=== PATIENT | female | born 1945 | race Hispanic/Latino ===

== ENCOUNTER → 2018-05-02 | Outpatient (CLI) | payer OTHER | END | disposition home or self-care (01) | LOC: OIH 15:37 | PROVIDERS: ATTEND Family Medicine | DX: M47.818 Spondylosis without myelopathy or radiculopathy, sacral and sacrococcygeal region (principal); M85.88 Other specified disorders of bone density and structure, other site; R07.81 Pleurodynia | CPT/HCPCS: 71100; 72220 ==

== ENCOUNTER → 2018-07-07 | Outpatient (CLI) | payer OTHER | END | disposition home or self-care (01) | LOC: RAH 11:49 | PROVIDERS: ATTEND Family Medicine | DX: E04.2 Nontoxic multinodular goiter (principal) | CPT/HCPCS: 76536 ==

== ENCOUNTER → 2019-04-03 | Outpatient (CLI) | payer OTHER | END | disposition home or self-care (01) | LOC: RAH 11:30 | PROVIDERS: ATTEND Family Medicine | DX: E04.2 Nontoxic multinodular goiter (principal) | CPT/HCPCS: 76536 ==

== ENCOUNTER → 2019-11-19 | Outpatient (CLI) | payer OTHER | END | disposition home or self-care (01) | LOC: RAH 11:10 | PROVIDERS: ATTEND Internal Medicine | DX: M47.816 Spondylosis without myelopathy or radiculopathy, lumbar region (principal); G95.89 Other specified diseases of spinal cord; R10.2 Pelvic and perineal pain | CPT/HCPCS: 72192 ==

== ENCOUNTER → 2020-01-13 | Outpatient (CLI) | payer OTHER | END | disposition home or self-care (01) | LOC: OIH 10:45 | PROVIDERS: ATTEND Family Medicine | DX: R51 Headache (principal); Z91.09 Other allergy status, other than to drugs and biological substances | CPT/HCPCS: 70220 ==

== ENCOUNTER → 2020-01-20 | Outpatient (CLI) | payer OTHER | END | disposition home or self-care (01) | LOC: OIH 15:18 | PROVIDERS: ATTEND Family Medicine | DX: M25.551 Pain in right hip (principal) | CPT/HCPCS: 73502 ==

== ENCOUNTER → 2021-07-17 | Outpatient (CLI) | payer OTHER | END | disposition home or self-care (01) | LOC: RAH 10:43 | PROVIDERS: ATTEND Family Medicine | DX: M25.711 Osteophyte, right shoulder (principal); M25.511 Pain in right shoulder | CPT/HCPCS: 73030 ==

== ENCOUNTER → 2022-07-10 | Outpatient (CLI) | payer OTHER | END | disposition home or self-care (01) | LOC: RAH 12:35 | PROVIDERS: ATTEND Family Medicine | DX: M48.02 Spinal stenosis, cervical region (principal); R22.1 Localized swelling, mass and lump, neck | CPT/HCPCS: 72040 ==

== ENCOUNTER → 2023-04-11 | Outpatient (CLI) | payer OTHER | END | disposition home or self-care (01) | LOC: RAH 11:12 | PROVIDERS: ATTEND Family Medicine | DX: R55 Syncope and collapse (principal) | CPT/HCPCS: 70450 ==

== ENCOUNTER → 2023-08-29 | Outpatient (CLI) | payer OTHER | END | disposition home or self-care (01) | LOC: RAH 08:38 | PROVIDERS: ATTEND Family Medicine | DX: N63.11 Unspecified lump in the right breast, upper outer quadrant (principal); N60.01 Solitary cyst of right breast | CPT/HCPCS: 76641; 77066 ==

== ENCOUNTER → 2023-11-28 | Outpatient (CLI) | payer OTHER | END | disposition home or self-care (01) | LOC: SHCH 11:18 | PROVIDERS: ATTEND Internal Medicine Cardiovascular Disease | DX: I25.42 Coronary artery dissection (principal) | CPT/HCPCS: 93306 ==

== ENCOUNTER → 2024-02-13 | Outpatient (CLI) | payer OTHER | END | disposition home or self-care (01) | LOC: RAH 14:51 | PROVIDERS: ATTEND Family Medicine | DX: M17.11 Unilateral primary osteoarthritis, right knee (principal); M25.461 Effusion, right knee; M71.21 Synovial cyst of popliteal space [Baker], right knee | CPT/HCPCS: 73721 ==

== ENCOUNTER → 2024-03-25 | Outpatient (CLI) | payer OTHER ==
[~2024-03-25] MED LIST: DIATR MEGLU/DIATRIZOATE SODIUM 30 ML BOTTLE ONE; IOHEXOL 350 MG/ML 100ML INFUS..BTL IV ONE
--- NOTE | 2024-03-25 12:50 | HMCIMG ---
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 TECHNIQUE: Images are obtained from the lung bases to the symphysis pubis following IV contrast, 100 cc Omnipaque 350. Oral contrast was administered as well. Water-soluble enema contrast was also employed. FINDINGS: Lung bases are clear. There are no focal liver lesions. There are normal-appearing kidneys.. Spleen and pancreas appear unremarkable. The gallbladder appears normal as well. Bowel loops appear unremarkable. This includes normal appearance of the appendix There is no evidence of free fluid or intraperitoneal air. There are no focal fluid collections. Aorta and retroperitoneum appear normal. There is no retroperitoneal lymphadenopathy. Urinary bladder appears unremarkable. Uterus appears atrophic, there are a few small calcifications. There is no evidence of contrast entering the ureter or exiting the vagina. The anterior abdominal wall is intact. Osseous structures appear unremarkable. IMPRESSION: 1. Negative noncontrast CT abdomen and pelvis. 2. No CT evidence of vaginal fistula. CT was performed with one or more following dose reduction techniques: automated exposure control, adjustment of the mA and kv according to patient's size, or use of a iterative reconstruction technique.
== END | disposition home or self-care (01) ==
LOC: RAH 08:49
PROVIDERS: ATTEND Internal Medicine
DX: N85.8 Other specified noninflammatory disorders of uterus (principal); N82.3 Fistula of vagina to large intestine
CPT/HCPCS: 74177; Q9963; Q9967

== ENCOUNTER → 2024-05-29 | Outpatient (CLI) | payer OTHER ==
--- NOTE | 2024-05-30 09:47 | HMCIMG ---
Nuclear medicine gastric emptying study HISTORY: Unspecified Abdominal Pain. COMPARISON: No relevant prior studies. RADIOPHARMACEUTICAL: 1 mCi of technetium 99 sulfur colloid TECHNIQUE: Dynamic computer imaging and serial static images were performed over the anterior abdomen for 1 hour. Static images obtained up to 2 hours. By region of interest computer analysis, a time/activity curve for the stomach was generated and a T 1/2 for clearance of activity was determined. FINDINGS: Review of dynamic images does not demonstrate any gastroesophageal reflux. The normal pattern of gastric emptying is appreciated. T 1/2: 96 minutes (normal 55-90 minutes). Percent empty at 1 hour: 46 percent (less than 40 percent at one hour is consistent with delayed emptying). IMPRESSION: Normal gastric emptying. No evidence of gastric outlet obstruction. No evidence of gastric emptying delay or gastroparesis.
== END | disposition home or self-care (01) ==
LOC: RAH 10:24
PROVIDERS: ATTEND Internal Medicine
DX: R10.9 Unspecified abdominal pain (principal)
CPT/HCPCS: 78264; A9541

== ENCOUNTER → 2024-09-22 | Outpatient (CLI) | payer OTHER ==
--- NOTE | 2024-09-23 09:30 | HMCIMG ---
MAMMO SCREENING BILATERAL HISTORY: Screening mammogram. COMPARISON: 08/29/2023 TECHNIQUE: Bilateral screening mammogram with CAD was performed with craniocaudal and mediolateral oblique projections. FINDINGS: There are scattered areas of fibroglandular density. There is no evidence of a dominant mass, or suspicious microcalcification. There is no evidence of nipple retraction or skin thickening. IMPRESSION: 1. Stable mammogram. Patient was entered into a reminder system with a target due date for their next mammogram. BI-RADS: CATEGORY 2: BENIGN FINDINGS Recommend monthly self breast exam as well as annual clinical examination. A negative x-ray should not delay biopsy if a dominant or clinically suspicious mass is present, since 8-10% of cancers are not identified by mammography. Dense breasts particularly, may obscure an underlying neoplasm. Some of these may be detected clinically and therefore, clinical examination is an essential part of breast evaluation.
== END | disposition home or self-care (01) ==
LOC: RAH 14:01
PROVIDERS: ATTEND Family Medicine
DX: Z12.31 Encounter for screening mammogram for malignant neoplasm of breast (principal); R92.323 Mammographic fibroglandular density, bilateral breasts
CPT/HCPCS: 77067

== ENCOUNTER → 2024-12-08 | Outpatient (CLI) | payer OTHER ==
--- NOTE | 2024-12-08 17:45 | HMCIMG ---
STUDY: MRI LUMBAR SPINE WITHOUT IV CONTRAST TECHNIQUE : Multiplanar T1 and T2 weighted sequences were obtained through the lumbar spine. ] CLINICAL INDICATION: Radiculopathy. FINDINGS: Mild levoscoliosis of the lumbar spine The conus medularis terminates at T12-L1 and is normal in appearance. T10-T11: 2 mm left paramidline posterior disk protrusion contains an annular disk tear. No visible spinal stenosis. Mild left neural foraminal narrowing. T11-T12:: There is mild anterior endplate marginal spurring. There is a 3 mm posterior disk protrusion resulting in mild central canal narrowing. Mild bilateral neural foraminal narrowing. T12-L1. Moderate loss of disc height. Small Schmorl's nodes within the adjacent endplates. Mild to moderate anterior endplate marginal spurring. 3 mm grade 1 posterior listhesis of the T12 over the L1 vertebral body. No disc herniation. There is a 5-6 mm posterior disk protrusion. Mild facet arthrosis and ligamentum flavum hypertrophy. Mild to moderate central canal narrowing. Mild to moderate right and mild left neural foraminal narrowing. L1-L2:. Mild loss of the disc height.. There is a 4 mm left posterolateral disc protrusion. There is mild central canal narrowing and mild left neural foraminal narrowing without evidence for nerve root impingement. Mild facet arthrosis and ligamentum flavum hypertrophy. L2-L3: Moderate to marked loss of disc height. 2 mm grade 1 posterior listhesis of the L2 over the L3 vertebral body.. There is a 6 mm posterior disk protrusion containing an annular disk tear. Moderate ligamentum flavum hypertrophy. Mild facet arthrosis. Moderate to marked central canal narrowing. Crowding of the descending nerve roots. Moderate bilateral neural foraminal narrowing. Contact and mild impingement on the exiting right L2 nerve root. L3-L4:. Marked loss of disc height. There is a 3 mm grade 1 posterior listhesis of L3 over the L4 vertebral body. Mild anterior endplate marginal spurring. There is a 4-5 mm broad-based posterior disc protrusion eccentric to the left. There is mild to moderate right and mild left facet arthrosis.. Moderate to marked central canal narrowing. Mild to moderate bilateral neural foraminal narrowing without evidence for nerve root impingement. [ L4-L5:. Mild loss of the disc height.. There is a 3 mm broad-based posterior disc protrusion. Mild to moderate facet arthrosis.. Moderate ligamentum flavum hypertrophy. Moderate central canal narrowing. Crowding of the descending nerve roots. Moderate left neural foraminal narrowing with contact and mild impingement on the exiting left L4 nerve root. Mild right neural foraminal narrowing L5-S1:. Marked loss of the disc height.. There is a 5 mm posterior disk protrusion. Mild facet arthrosis and ligamentum flavum hypertrophy.. Mild to moderate central canal and neural foraminal narrowing. Contact on the exiting right L5 nerve root without definite nerve root impingement. No bone marrow edema. Preservation of the vertebral body heights. The visualized para-spinal soft tissues are unremarkable. IMPRESSION: 1. Multilevel degenerative changes most severe at L2-L3 with moderate to marked central canal stenosis, posterior disk protrusion, and right L2 nerve root impingement. 2. Moderate to makred central canal stenosis at L4-L5 with left L4 nerve root impingement. 3. Grade 1 posterior listhesis at T12-L1, L2-L3, and L3-L4 levels. 4. Contact on the right L5 nerve root at L5-S1 without definite impingement. 5. Mild levoscoliosis. /[place]
== END | disposition home or self-care (01) ==
LOC: RAH 13:41
PROVIDERS: ATTEND Family Medicine
DX: M51.16 Intervertebral disc disorders with radiculopathy, lumbar region (principal); M47.26 Other spondylosis with radiculopathy, lumbar region; M51.24 Other intervertebral disc displacement, thoracic region; M53.3 Sacrococcygeal disorders, not elsewhere classified; M47.818 Spondylosis without myelopathy or radiculopathy, sacral and sacrococcygeal region; M48.07 Spinal stenosis, lumbosacral region; M48.04 Spinal stenosis, thoracic region; M51.45 Schmorl's nodes, thoracolumbar region; M46.07 Spinal enthesopathy, lumbosacral region; M43.15 Spondylolisthesis, thoracolumbar region; M41.86 Other forms of scoliosis, lumbar region
CPT/HCPCS: 72148

== ENCOUNTER 2024-12-11 17:58 | Emergency (ER) | payer OTHER ==
[~2024-12-11] VITALS: Ht 157.5 cm; Wt 70.3 kg
--- NOTE | 2024-12-11 18:08 | ERN ---
ED Note History of Present Illness Stated Complaint: SPIDER BITE Chief Complaint: Animal Bite Time Seen by MD: 18:00 Dictation: PATIENT IS A 79-YEAR-OLD FEMALE HERE WITH COMPLAINTS OF A SPIDER BITE THAT SHE WITNESSED AT NOON TODAY TO HER ANTERIOR LEFT FOOT ANKLE. SHE STATES IT HURT SHE SAID SHE KILLED IT HOWEVER SHE DID NOT BRING IN FOR EXAMINATION. SHE HAS TAKEN NOTHING PRIOR TO ARRIVAL FOR PAIN SHE IS HERE BECAUSE IT IS IS MILDLY PAINFUL MILD ERYTHEMA TO THE ENVENOMATION SITE. SHE IS A DIABETIC Allergies: Coded Allergies: Iodinated Contrast Media (Unverified Allergy, Unknown, 05/29/24) iodine (Unverified Allergy, Unknown, 05/29/24) Past Medical History Past Medical History: Diabetes-Type II, High Cholesterol, Hypertension Surgical History: Hysterectomy History: Not Applicable RN Note Reviewed/Agreed w/PFSH: Yes Review of System Dictation CONSTITUTIONAL: NEGATIVE EXCEPT FOR HPI HEAD/FACE: NEGATIVE EXCEPT FOR HPI EENT: NEGATIVE EXCEPT FOR HPI RESPIRATORY: NEGATIVE EXCEPT FOR HPI GASTROINTESTINAL/ABDOMINAL: NEGATIVE EXCEPT FOR HPI GENITOURINARY: NEGATIVE EXCEPT FOR HPI MUSCULOSKELETAL: NEGATIVE EXCEPT FOR HPI INTEGUMENTARY: NEGATIVE EXCEPT FOR HPI SPIDER BITE LEFT ANTERIOR FOOT ANKLE. NEUROLOGICAL/PSYCH: NEGATIVE EXCEPT FOR HPI HEMATOLOGIC/LYMPHATIC: NEGATIVE EXCEPT FOR HPI ALL SYSTEMS NEGATIVE, EXCEPT NOTED ABOVE. 13 POINT REVIEW OF SYSTEMS ASSESSED AND ALL NEGATIVE EXCEPT FOR ABOVE. Initial Vital Sign VS Vital Signs Date Time Temp Pulse Resp B/P (MAP) Pulse Ox O2 Delivery O2 Flow Rate FiO2 12/11/24 18:00 97.7 61 19 172/58 100 Room Air 0 12/11/24 18:27 21 Physical Exam Dictation VITAL SIGNS REVIEWED GENERAL APPEARANCE: ALERT, ORIENTED X 3, MILD ACUTE DISTRESS, WELL DEVELOPED, NOURISHED. HEAD AND FACE: NON-TRAUMATIC. EYES: PERRL, PINK CONJUNCTIVAS, EYELID NO TRAUMA, ANTERIOR CHAMBER WITH ARCUS SENILIS. EARS: PINNAS INTACT AND NO SIGNS OF TRAUMA OR ERYTHEMA EAR CANALS CLEAR AND NO DISCHARGE TM NO ERYTHEMA NOSE: NO DISCHARGE, NO BLEEDING. OROPHARYNX: MOUTH NORMAL, TONGUE PINK, PHARYNX CLEAR,NO ERYTHEMA, TONSILS NO EXUDATES, NO ABSCESSES NOTED, MUCOUS MEMBRANE MOIST NECK: SUPPLE, NON-TENDER, NO THYROMEGALY, NO MASSES, NO JVD, NO BRUITS BREAST:DEFERRED CHEST:NO TENDERNESS, NO CREPITUS, NO PARADOXICAL MOVEMENT, NO RETRACTIONS LUNGS:CLEAR, WELL-VENTILATED, SYMMETRIC, NO RALES, NO WHEEZING, NO RHONCHI, NO STRIDOR, GOOD BREATH SOUNDS BILATERALLY HEART: REGULAR RATE, REGULAR RHYTHM, NO MURMUR, NO GALLOPS VASCULAR: NO PERIPHERAL EDEMA, ABDOMEN: SOFT, POSITIVE BOWEL SOUNDS, NONDISTENDED, NO GUARDING, NONTENDER, NO REBOUND, NO MASSES NO HEPATOMEGALY, NO SPLENOMEGALY, NO PADILLA'S SIGN, NO HERNIAS. RECTAL: DEFERRED GENITAL: DEFERRED NEUROLOGICAL: NORMAL SPEECH, MOTOR FUNCTION INTACT, SENSORY FUNCTION INTACT MUSCULOSKELETAL: NECK NONTENDER, FULL RANGE OF MOTION, BACK NONTENDER, FULL RANGE OF MOTION, EXTREMITIES: NONTENDER, FULL RANGE OF MOTION FULL RANGE OF MOTION SKIN: COLOR PINK, TARGET LESION TO LEFT ANTERIOR ANKLE FOOT. MILD ERYTHEMA NO STREAKS LYMPHATIC: DEFERRED Results (Laboratory/Radiology) Labs Reviewed?: Yes ED Course ED Course Orders Procedure Category Date Status Time Acetaminophen 500mg PHA 12/11/24 Complete Tab (Tylenol 500mg T 18:30 Clindamycin 150mg Cap PHA 12/11/24 Complete (Cleocin 150mg Cap 18:30 Current Medications Medications (Trade) Dose Ordered Sig/Laith Route PRN Reason Start Time Stop Time Status Last Admin Dose Admin Acetaminophen (TYLenol 500MG TAB) 1,000 mg ONCE ONCE PO 12/11/24 18:30 12/11/24 18:31 DC 12/11/24 18:22 Clindamycin HCl (Cleocin 150mg Cap) 600 mg ONCE ONCE PO 12/11/24 18:30 12/11/24 18:31 DC 12/11/24 18:22 Vital Signs Date Time Temp Pulse Resp B/P (MAP) Pulse Ox O2 Delivery O2 Flow Rate FiO2 12/11/24 18:27 97.7 78 18 156/95 97 Room Air* 0 21 12/11/24 18:00 97.7 61 19 172/58 100 Room Air 0 1850/PATIENT WILL BE GIVEN PAIN MANAGEMENT AND CLINDAMYCIN DUE TO HER HISTORY OF DIABETES. TREATED PROPHYLACTICALLY TO PREVENT CELLULITIS STATUS POST INSECT BITE GIVEN INSTRUCTIONS TO SEE HER DOCTOR SATURDAY. RETURN TO THE EMERGENCY ROOM IF ANY SIGNS OF SEPSIS OR FEVER Medical Decision Making MDM MEDICAL DISCHARGE MAKING BASED ON EMPIRIC TREATMENT FOR PAIN FROM INSECT BITE PATIENT GIVEN CLINDAMYCIN 600 MG P.O. DUE TO HISTORY OF DIABETES PROPHYLAXIS FOR CELLULITIS AND INFECTION DISCHARGED HOME WITH THE INSTRUCTIONS AND CLINDAMYCIN DX & DISP Disposition: Discharge Departure Impression: Primary Impression: Insect bite of left foot Additional Impression: History of diabetes mellitus, type II Condition: Stable Scripts Clindamycin HCl (Clindamycin HCl) 300 Mg Capsule 1 CAP PO QID for 7 Days, #28 CAP 0 Refills Prov: JAMESON BARBOSA NP 12/11/24 Additional Instructions: FOLLOW-UP WITH PRIMARY CARE PROVIDER IN 1 TO 2 DAYS. TAKE MEDICATIONS DIRECTED HERE IN THE EMERGENCY ROOM. OKAY TO CONTINUE HOME MEDICATIONS UNLESS OTHERWISE DISCUSSED DURING YOUR VISIT IN THE EMERGENCY ROOM TODAY. RETURN TO YOUR NEAREST EMERGENCY ROOM IF SYMPTOMS WORSEN OR IF THERE IS NO IMPROVEMENT. CALL 911 IF YOU NEED IMMEDIATE ASSISTANCE. TAKE TYLENOL OR MOTRIN [id number] NEEDED AND IF NO CONTRAINDICATIONS ARE PRESENT. INCREASE ORAL HYDRATION. A WOUND CULTURE OR URINE CULTURE WAS ORDERED HERE IN THE EMERGENCY ROOM DEPARTMENT PLEASE FOLLOW-UP WITH PRIMARY CARE PROVIDER AND ADVISE THEM TO GET REPEAT PORTS FROM OUR FACILITY. IF YOU HAD ANY MEDARDO WRAP/SPLINTS THAT WERE APPLIED HERE, PLEASE DO NOT REMOVE THEM UNTIL YOU SEE YOUR PRIMARY CARE OR SPECIALTY. TAKE ANTIBIOTICS DIRECTED UNTIL GONE., COOL COMPRESSES TO INSECT BITE THREE TO 4 TIMES A DAY. SEE YOUR PRIMARY CARE DOCTOR ON SATURDAY FOR FOLLOW UP, RETURN TO THE EMERGENCY ROOM IF FEVER CHILLS FOOT BECOMES RED AND SWOLLEN OR TEMPERATURE MORE THAN 101. Referrals: JEANCARLOS GUSTAFSON MD (PCP) Time of Disposition: 18:51 I have reviewed the case, and I agree with, Diagnosis and Plan JAMESON BARBOSA NP Dec 11, 2024 18:08
[2024-12-11] MEDS: CLINDAMYCIN 150 MG CAP PO ONE (18:22)
[2024-12-11] MEDS ORDERED: CLIN-141 PO (18:52)
[2024-12-11 19:00] VITALS: BP 155/92; PULSE 78; RESP 18; TEMP 97.7; O2SAT 100
== END 2024-12-11 19:11 | disposition home or self-care (01) ==
LOC: EDH 17:58
DX: S90.862A Insect bite (nonvenomous), left foot, initial encounter (principal); E11.9 Type 2 diabetes mellitus without complications; E78.00 Pure hypercholesterolemia, unspecified; I10 Essential (primary) hypertension; Z88.8 Allergy status to other drugs, medicaments and biological substances; Z90.710 Acquired absence of both cervix and uterus; Z91.041 Radiographic dye allergy status; W57.XXXA Bitten or stung by nonvenomous insect and other nonvenomous arthropods, initial encounter
CPT/HCPCS: 99283

== ENCOUNTER → 2025-03-02 | Outpatient (CLI) | payer OTHER ==
[~2025-03-02] MED LIST changes: +CLIN-141 PO; -DIATR MEGLU/DIATRIZOATE SODIUM 30 ML BOTTLE ONE; -IOHEXOL 350 MG/ML 100ML INFUS..BTL IV ONE
--- NOTE | 2025-03-03 17:31 | HMCIMG ---
EXAM: CR Cervical spine, 5 View. CLINICAL HISTORY: CERVICALGIA COMPARISON: None provided. FINDINGS: BONES: No acute fracture or aggressive appearing osseous lesion. Straightening of the cervical spine. No changes in alignment in flexion and extension views. DISCS/DEGENERATIVE CHANGES: Spondylosis with reduced disc spaces from C5 to C7 level. SOFT TISSUES: No prevertebral soft tissue swelling. The visualized lung apices are clear. IMPRESSION: No acute cervical spine abnormality. Spondylosis with reduced disc spaces from C5 to C7 level. /[place]
--- NOTE | 2025-03-03 17:37 | HMCIMG ---
EXAM: CR right Shoulder, 2 View. CLINICAL HISTORY: PAIN IN RIGHT SHOULDER COMPARISON: None provided. FINDINGS: BONES: No acute fracture or aggressive appearing osseous lesion. JOINTS: No dislocation. The joint spaces are normal. SOFT TISSUES: Subacromial calcification IMPRESSION: Subacromial calcification, representing calcific tendinopathy. No fracture or dislocation. /[place]
== END | disposition home or self-care (01) ==
LOC: RAH 15:40
PROVIDERS: ATTEND Family Medicine
DX: M47.812 Spondylosis without myelopathy or radiculopathy, cervical region (principal); M67.911 Unspecified disorder of synovium and tendon, right shoulder; M25.511 Pain in right shoulder; M50.322 Other cervical disc degeneration at C5-C6 level; M50.323 Other cervical disc degeneration at C6-C7 level
CPT/HCPCS: 72050; 73030

== ENCOUNTER → 2025-04-06 | Outpatient (CLI) | payer OTHER ==
--- NOTE | 2025-04-07 01:29 | HMCIMG ---
EXAM: CR left Knee, 3 View. AP, lateral and oblique. CLINICAL HISTORY: PAIN I RIGHT KNEE, PAIN IN LEFT KNEE COMPARISON: None provided. FINDINGS: BONES: No acute fracture or aggressive appearing osseous lesion. JOINTS: Medial tibio-femoral compartment : Moderate reduced joint space narrowing. Lateral tibio-femoral compartment : Mild joint space narrowing. Small marginal osteophytes noted along the medial tibial plateau, femoral condyle and superior pole of patella. There is no joint effusion appreciated. SOFT TISSUES: The soft tissues are unremarkable. IMPRESSION: Moderate osteoarthritis of the medial compartment and mild osteoarthritis of lateral compartment of the left knee. ( Clinical correlation with symptoms advised) /[place]
--- NOTE | 2025-04-07 01:38 | HMCIMG ---
EXAM: CR RIGHT KNEE, 3 VIEWS CLINICAL HISTORY: Bilateral knee pain. COMPARISON: None provided TECHNIQUE: Three views x-ray of the right knee was performed. FINDINGS: Bones: No acute fracture or neoplastic process is identified. The patella is not displaced. No osteochondral deformities are identified. Joints: A knee joint effusion is not present. Moderate degenerative sclerosis and spurring are present along the patellofemoral joint space and medial and lateral knee compartments. Asymmetric medial knee compartment narrowing is evident. Soft tissues: Mild soft tissue swelling is seen. IMPRESSION: 1. Moderate osteoarthritic right knee findings, including degenerative sclerosis, spurring, and asymmetric medial compartment joint space narrowing.Kellgren and Ventrua grade 3. /[place]
== END | disposition home or self-care (01) ==
LOC: RAH 15:11
PROVIDERS: ATTEND Physical Medicine & Rehabilitation
DX: M17.0 Bilateral primary osteoarthritis of knee (principal); M25.462 Effusion, left knee; M25.461 Effusion, right knee; M25.762 Osteophyte, left knee; M76.891 Other specified enthesopathies of right lower limb, excluding foot; M25.562 Pain in left knee; M25.561 Pain in right knee
CPT/HCPCS: 73562